=== PATIENT | male | born 1975 | race African-American/Black ===

== ENCOUNTER 2020-03-30 12:20 | Emergency (ER) | payer SELFPAY ==
[~2020-03-30] VITALS: Ht 177.8 cm; Wt 70.3 kg
[2020-03-30] MEDS ORDERED: LORazepam Inj 2mg/ml 1ml IV ONE (12:30)
--- NOTE | 2020-03-30 12:37 | Emergency Room Report ---
History of Present Illness General Chief Complaint: To Be Triaged Present Illness HPI Patient is a 44-year-old male brought in by family members after increased agitation and altered mental status. Patient a prior history of type 2 diabetes. Reports having increased foot pain. Reports having increased walking for several days. Denies any fever. Had been noticed by family members to be behaving more bizarrely. Patient states he smoked marijuana earlier in the day. Denies any tobacco or other no prior history of hypertension or CVA. (Bruce Kumar MD) Allergies: Coded Allergies: SULFA (SULFONAMIDE ANTIBIOTICS) (Verified Allergy, Unknown, 03/30/20) Patient History Past Medical History: see triage record Reviewed Nursing Documentation: PMH: Agreed; PSxH: Agreed (Bruce Kumar MD) Review of Systems All Other Systems: limited - Limited by poor historian (Bruce Kumar MD) Physical Exam Sp02 EP Interpretation: reviewed, normal General Appearance: alert, GCS 15, mild distress Head: atraumatic ENT: normal ENT inspection, hearing grossly normal, normal voice Neck: normal inspection, full range of motion, supple, no bony tend Respiratory: normal inspection, lungs clear, normal breath sounds, no respiratory distress, no retraction, no wheezing Cardiovascular #1: regular rate, rhythm, no edema Gastrointestinal: normal inspection, normal bowel sounds, non tender, soft, no guarding, no hernia Genitourinary: no CVA tenderness Musculoskeletal: normal inspection, back normal, normal range of motion Neurologic: alert, motor strength/tone normal, 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, oriented x3, responsive, other - Motor agitation, responsive Psychiatric: normal inspection, judgement/insight normal, mood/affect normal Skin: other - blistering to plantar aspect of both feet without erythema (Bruce Kumar MD) Medical Decision Making Diagnostic Impression: Primary Impression: Altered mental status Qualified Codes: R41.82 - Altered mental status, unspecified Additional Impressions: Sinusitis Qualified Codes: J32.9 - Chronic sinusitis, unspecified Blister of foot Qualified Codes: S90.829A - Blister (nonthermal), unspecified foot, initial encounter ER Course Patient presents for altered mental status. Differential diagnosis include was not limited to hypoglycemia, CVA, substance abuse, encephalopathy among others. Because of complexity of patient's case laboratory tests and imaging studies were ordered. Patient was noted to be awake and alert. He answers questions but appears to be having significant psychomotor agitation. There are blisters noted to both feet and patient states he been walking and having symptoms for approximately 5 days to the feet.Patient appears to have some agitation was given Ativan. CT imaging was ordered due to patient's reported altered mental status.CT imaging showed no evidence of acute pathology, no midline shift, ventricle size was normal.His blood sugar appears to be adequate. Patient initially cannot provide urine specimen. Laboratory testing showed minimal hypokalemia.Was endorsed to oncoming physician pending reassessment when more alert. Suspect patient's mental status changes related to recent substance use. Labs Test 03/30/20 12:33 White Blood Count 11.0 K/UL (4.8-10.8) Red Blood Count 4.45 M/UL (4.70-6.10) Hemoglobin 12.3 G/DL (14.2-18.0) Hematocrit 39.1 % (42.0-52.0) Mean Corpuscular Volume 88 FL (80-99) Mean Corpuscular Hemoglobin 27.6 PG (27.0-31.0) Mean Corpuscular Hemoglobin Concent 31.4 G/DL (32.0-36.0) Red Cell Distribution Width 12.9 % (11.6-14.8) Platelet Count 247 K/UL (150-450) Mean Platelet Volume 6.7 FL (6.5-10.1) Neutrophils (%) (Auto) 72.4 % (45.0-75.0) Lymphocytes (%) (Auto) 18.0 % (20.0-45.0) Monocytes (%) (Auto) 8.6 % (1.0-10.0) Eosinophils (%) (Auto) 0.3 % (0.0-3.0) Basophils (%) (Auto) 0.7 % (0.0-2.0) Prothrombin Time 10.8 SEC (9.30-11.50) Prothromb Time International Ratio 1.0 (0.9-1.1) Activated Partial Thromboplast Time 30 SEC (23-33) Sodium Level 142 MMOL/L (136-145) Potassium Level 3.4 MMOL/L (3.5-5.1) Chloride Level 102 MMOL/L (98-107) Carbon Dioxide Level 32 MMOL/L (21-32) Anion Gap 8 mmol/L (5-15) Blood Urea Nitrogen 17 mg/dL (7-18) Creatinine 1.3 MG/DL (0.55-1.30) Estimat Glomerular Filtration Rate > 60 mL/min (>60) Glucose Level 114 MG/DL (74-106) Calcium Level 9.0 MG/DL (8.5-10.1) Total Bilirubin 0.9 MG/DL (0.2-1.0) Aspartate Amino Transf (AST/SGOT) 70 U/L (15-37) Alanine Aminotransferase (ALT/SGPT) 47 U/L (12-78) Alkaline Phosphatase 85 U/L (46-116) Troponin I 0.000 ng/mL (0.000-0.056) Total Protein 8.4 G/DL (6.4-8.2) Albumin 3.8 G/DL (3.4-5.0) Globulin 4.6 g/dL Albumin/Globulin Ratio 0.8 (1.0-2.7) Thyroid Stimulating Hormone (TSH) 0.940 uiU/mL (0.358-3.740) Serum Alcohol < 3 mg/dL (Bruce Kumar MD) ER Course This patient presents with agitation and placed on his feet. He slept your for several hours. He said he felt better now. Not suicidal or homicidal. No criteria for 5150. Said that he wants to go home. Will discharge home. (Justin Toledo MD) EKG Diagnostic Results Rate: normal Rhythm: NSR ST Segments: no acute changes (Bruce Kumar MD) Status: improved (Bruce Kumar MD) Status: improved (Justin Toledo MD) Disposition: HOME, SELF-CARE Condition: Stable Additional Instructions: Follow-up with your doctor in 7 days. Follow-up with mental health also. Return if symptoms worsen. Bruce Kumar MD Mar 30, 2020 12:37 Justin Toledo MD Mar 31, 2020 01:17
[2020-03-30] MEDS ORDERED: Thiamine HCl 100 MG in D5W 55 ML IVPB ONE (12:45)
[2020-03-30 12:58] LABS: BASOPHILS % (AUTO) 0.7 % (0.0-2.0); EOSINOPHILS % (AUTO) 0.3 % (0.0-3.0); HEMATOCRIT 39.1 % (42.0-52.0); HEMOGLOBIN 12.3 G/DL (14.2-18.0); MEAN CORPUSCULAR VOLUME 88 FL (80-99); MONOCYTES % (AUTO) 8.6 % (1.0-10.0); NEUTROPHILS % (AUTO) 72.4 % (45.0-75.0); PLATELET COUNT 247 K/UL (150-450); RED BLOOD COUNT 4.45 M/UL (4.70-6.10); RED CELL DISTRIBUTION WIDTH 12.9 % (11.6-14.8)
[2020-03-30 13:11] LABS: ANION GAP 8 mmol/L (5-15); BLOOD UREA NITROGEN 17 mg/dL (7-18); CARBON DIOXIDE 32 MMOL/L (21-32); CHLORIDE 102 MMOL/L (98-107); CREATININE 1.3 MG/DL (0.55-1.30); POTASSIUM 3.4 MMOL/L (3.5-5.1); SODIUM 142 MMOL/L (136-145)
[2020-03-30 13:20] VITALS: BP 121/67
[2020-03-30 13:24] LABS: ALANINE AMINOTRANSFERASE 47 U/L (12-78); ALBUMIN 3.8 G/DL (3.4-5.0); ALBUMIN/GLOBULIN RATIO 0.8 (1.0-2.7); ALKALINE PHOSPHATASE 85 U/L (46-116); ASPARTATE AMINO TRANSFERASE 70 U/L (15-37); BILIRUBIN,TOTAL 0.9 MG/DL (0.2-1.0)
--- NOTE | 2020-03-30 13:26 | Diagnostic Imaging Report ---
EXAM: CT Head Without Intravenous Contrast CLINICAL HISTORY: AMS TECHNIQUE: Axial computed tomography images of the head/brain without intravenous contrast. CTDI is 53.4 mGy and DLP is 1072.2 mGy-cm. One or more of the following dose reduction techniques were used: automated exposure control, adjustment of the mA and/or kV according to patient size, use of iterative reconstruction technique. COMPARISON: No relevant prior studies available. FINDINGS: Brain: No hemorrhage. No edema. Ventricles: No ventriculomegaly. Bones/joints: No acute fracture. Fixation hardware related to the left orbit and maxillary sinus. Soft tissues: Unremarkable. Sinuses: No acute sinusitis. Mastoid air cells: No mastoid effusion. IMPRESSION: No acute intracranial process.
--- NOTE | 2020-03-30 15:39 | NUR ---
[facility] family called call them when he is ready to be discharged.ling [phone]
[2020-03-30 16:26] VITALS: BP 118/81
--- NOTE | 2020-03-30 19:50 | NUR ---
ED Nurse Note: Pt sleeping, responds to verbal command. No new needs identified at this time.
[2020-03-30 19:51] VITALS: BP 117/83
--- NOTE | 2020-03-30 21:30 | NUR ---
ED Nurse Note: Pt asleep, responds to verbal command. No new needs identified at this time.
[2020-03-30 21:31] VITALS: BP 120/86
[2020-03-30 22:58] VITALS: BP 121/88
--- NOTE | 2020-03-30 22:59 | NUR ---
ED Nurse Note: Pt is sleeping, responds to verbal command.
[2020-03-31 00:52] VITALS: BP 118/76
--- NOTE | 2020-03-31 00:52 | NUR ---
ED Nurse Note: Pt sleeping. Responds to verbal command. Pt continues to be on front desk monitor. No new needs identified.
--- NOTE | 2020-03-31 01:35 | NUR ---
ER DISCHARGE NOTE: Patient is cleared to be discharged per ER MD, pt is aaox4, on room air, with stable vital signs. pt was given d/c and prescription instructions, pt was able to verbalize understanding, pt id band and iv site removed without complications. pt is able to ambulate with steady gait. pt took all belongings. Pt provided with sandwich and drink. Pt appropriately dressed for weather.
[2020-03-31 01:36] VITALS: BP 118/76
== END 2020-03-31 01:30 | disposition home or self-care (01) ==
LOC: EMR 12:40
DX: R41.82 Altered mental status, unspecified (principal); J32.9 Chronic sinusitis, unspecified; S90.829A Blister (nonthermal), unspecified foot, initial encounter; Z88.2 Allergy status to sulfonamides; E11.9 Type 2 diabetes mellitus without complications; F15.90 Other stimulant use, unspecified, uncomplicated
CPT/HCPCS: 36415; 70450; 80053; 82962; 84443; 84484; 85025; 85610; 85730; 96361; 96365; 96375; 99284; G0480; J7030